=== PATIENT | male | born 1945 | race Caucasian/White ===

== ENCOUNTER 2020-03-21 15:43 | Emergency (ER) | payer OTHER ==
[~2020-03-21] VITALS: Ht 175.3 cm; Wt 132.2 kg
[2020-03-21] MEDS ORDERED: NEURONTIN 300M300 M2 PO (15:48)
[2020-03-21] MEDS ORDERED: KLOR-CON M2020 MEQ PO (15:49)
[2020-03-21] MEDS ORDERED: LASIX 40 MG TAB40 MG PO (15:49)
[2020-03-21] MEDS ORDERED: HUMALOG100 UNIT/1 SUBQ (15:49)
[2020-03-21] MEDS ORDERED: TOPROL XL25 MG PO (15:50)
[2020-03-21 16:09] LABS: ABSOLUTE EOSINOPHILS 0.1 thou/uL (0.0-0.7); ABSOLUTE LYMPHOCYTES 0.4 thou/uL (0.8-5.3); ABSOLUTE MONOCYTES 0.6 thou/uL (0.0-1.2); ABSOLUTE NEUTROPHILS 3.9 thou/uL (1.6-8.1); BASOPHILS 0.6 %; EOSINOPHILS 2.4 %; HEMATOCRIT 26.4 % (42.0-52.0); HEMOGLOBIN 8.4 gm/dL (14.0-18.0); LYMPHOCYTES 8.2 %; MCH 24.7 pg (26.0-34.0); MCHC 31.9 g/dL (28.0-37.0); MCV 77.5 fL (80.0-100.0); MONOCYTES 12.7 %; MPV 6.1 fl. (7.2-11.1); NUCLEATED RBCS 0 /100WBC; PLATELET COUNT* 276 thou/uL (150-400); POLYS 76.1 %; RBC 3.41 mil/uL (4.50-6.00); RDW-CV 18.3 % (10.5-14.5); WBC 5.1 thou/uL (4.0-11.0)
[2020-03-21 16:20] LABS: APTT 29.8 Seconds (25.0-31.3); INR 1.2; PROTIME 12.9 Seconds (9.20-11.50)
[2020-03-21 16:37] LABS: CALCIUM 7.8 mg/dL (8.5-10.1); CREATININE 1.6 mg/dL (0.6-1.3); POTASSIUM 4.4 mmol/L (3.5-5.1)
[2020-03-21 16:48] LABS: ALBUMIN 2.6 g/dL (3.4-5.0); TOTAL BILIRUBIN 0.4 mg/dL (<0.1-1.0); TOTAL PROTEIN 6.1 g/dL (6.4-8.2)
[2020-03-21 20:07] VITALS: BP 105/47
--- NOTE | 2020-03-22 10:48 | EKG ---
[place] [address] ELECTROCARDIOGRAM REPORT Name: IVET CHU Room: [facility]#: [id number] Admission: 03/21/20 Attend Phys: Discharge: 03/21/20 Date of : 45 Date of Service: 03/21/20 1650 Report #: [id number] THIS REPORT FOR: //name// [facility] ED Test Date: 2020-03-21 Test Time: 16:50:01 Pat Name: IVET CHU Department: Room: Gender: Operations Trainer: : 1945 Requested By: Bret Gamble Order Number: [id number] MD: Eligio Arnold Measurements Intervals [place] Rate: 97 P: MT: QRS: 54 QRSD: 105 T: QT: 462 QTc: 587 Interpretive Statements Atrial fibrillation Low voltage, extremity and precordial leads Prolonged QT interval No previous ECG available for comparison Electronically Signed On 03-22-2020 10:48:22 [employer]LOBAL PROGRAM MANAGER by Eligio Arnold [email or web address] <ELECTRONICALLY SIGNED> By: Eligio Arnold MD, [facility] 03/22/20 1048 49 49 Eligio Arnold MD, FAC /EPI
== END 2020-03-21 19:45 | disposition short-term general hospital (02) ==
LOC: M.ERS 15:43
PROVIDERS: Family Medicine
DX: U07.1 COVID-19 (principal); A41.9 Sepsis, unspecified organism; L03.116 Cellulitis of left lower limb; L03.115 Cellulitis of right lower limb; R53.1 Weakness; Z91.041 Radiographic dye allergy status; Z88.5 Allergy status to narcotic agent; Z88.8 Allergy status to other drugs, medicaments and biological substances; E11.9 Type 2 diabetes mellitus without complications; I48.91 Unspecified atrial fibrillation; Z95.5 Presence of coronary angioplasty implant and graft